=== PATIENT | male | born 1985 | race Caucasian/White ===

== ENCOUNTER 2020-12-05 10:05 | Emergency (ER) | payer BC, OTHER ==
[~2020-12-05] VITALS: Ht 175.3 cm; Wt 72.4 kg
[~2020-12-05 10:05] MED LIST: LIDOCAINE 1% INJ 20 ML 20 ML VIAL ONE
[2020-12-05 10:08] VITALS: BP 139/85
[2020-12-05] MEDS ORDERED: LIDOCAINE 1% INJ 20 ML 20 ML VIAL ONE (10:09)
[2020-12-05] MEDS ORDERED: LIDOCAINE/EPI 2% 1:100,00 (XYLOCAINE) 20 ML VIAL ONE (10:10)
[2020-12-05] MEDS ORDERED: LIDOCAINE/EPI 2% 1:100,00 (XYLOCAINE) 20 ML VIAL INJ ONE (10:15)
[2020-12-05] MEDS ORDERED: TETANUS,DIPTH,PERTUSS P/F (BOOSTRIX) 0.5 ML VIAL IM ONE (10:15)
--- NOTE | 2020-12-05 10:15 | ED Upper Extremity ---
General Chief Complaint: Laceration Stated Complaint: RT HAND LAC Source: patient Exam Limitations: no limitations History of Present Illness Date Seen by Provider: Dec 05, 2020 Time Seen by Provider: 10:08 Initial Comments Patient reports ER by private conveyance with chief complaint that he has lacerations on the back of his right hand. He is right-hand dominant. He states he was out feeding his dogs walking back to his truck when he lost his balance and fell onto outstretched hand onto some glass causing several small lacerations to the back of his hand. He says he does not have any significant pain. Did not crush his hand. He has full range of motion. Not on any medications or blood thinners. Allergies and Home Medications Allergies Coded Allergies: No Known Drug Allergies (Unverified , 12/05/20) Home Medications Amoxicillin 500 Mg Capsule, 500 MG PO TID Prescribed by: MONTANA BLUNT on 12/05/20 1033 Patient Home Medication List Home Medication List Reviewed: Yes Review of Systems Constitutional: No chills, No diaphoresis EENTM: No ear discharge, No ear pain Respiratory: No cough, No short of breath Cardiovascular: No chest pain, No palpitations Genitourinary: No discharge, No dysuria Musculoskeletal: No back pain, No joint pain Past Xubwqor-Oyhzdj-Czdifj Hx Patient Social History Alcohol Use: Occasionally Uses Alcohol Beverage of Choice: Beer Smoking Status: Never a Smoker Physical Exam Vital Signs Vital Signs - First Documented 12/05/20 10:08 Temp 36.2 Pulse 90 Resp 14 B/P (MAP) 139/85 (103) Pulse Ox 100 O2 Delivery Room Air Capillary Refill : Height, Weight, BMI Height: '" Weight: lbs. oz. kg; BMI Method: General Appearance: WD/WN, mild distress HEENT: PERRL/EOMI, pharynx normal Cardiovascular: normal peripheral pulses, regular rate, rhythm Respiratory: no respiratory distress, no accessory muscle use Wrist: Yes normal inspection, Yes non-tender, Yes no evidence of injury, Yes normal ROM Hand: normal ROM, Right, laceration (1 cm laceration over the third knuckle dorsum, 1-1/2 cm laceration over the distal second metacarpal and 3.5 cm laceration over the third metacarpal dorsal right hand.) Procedures/Interventions Wound Location: Upper Extremities Other Wound Location Dorsal right hand over the third metacarpal Wound Length (cm): 3.5 Wound's Depth, Shape: linear, sub Q Wound Explored: no foreign body removed Irrigated w/ Saline (ccs): 100 Betadine Prep?: Yes (Chlorhexidine) Anesthesia: Lidocaine w/ Epi Volume Anesthetic (ccs): 4 Wound Debrided: minimal Suture: Prolene Suture Size: 4-0 Number of Sutures: 4 Layer Closure?: 1 Sterile Dressing Applied?: Yes Wound Location: Upper Extremities Other Wound Location Dorsal right hand over the second metacarpal Wound Length (cm): 1.5 Wound's Depth, Shape: linear, sub Q Wound Explored: no foreign body removed Irrigated w/ Saline (ccs): 50 Betadine Prep?: Yes (Chlorhexidine) Anesthesia: Lidocaine w/ Epi Volume Anesthetic (ccs): 1 Wound Debrided: minimal Suture: Prolene Suture Size: 4-0 Number of Sutures: 2 Layer Closure?: 1 Sterile Dressing Applied?: Yes Wound Location: Upper Extremities Other Wound Location Right hand dorsum over the knuckle of the third digit Wound Length (cm): 1 Wound's Depth, Shape: linear, sub Q Wound Explored: no foreign body removed Irrigated w/ Saline (ccs): 50 Betadine Prep?: Yes (Chlorhexidine) Anesthesia: Lidocaine w/ Epi Volume Anesthetic (ccs): 1 Wound Debrided: minimal Suture: Prolene Suture Size: 4-0 Number of Sutures: 1 Layer Closure?: 1 Sterile Dressing Applied?: Yes Progress/Results/Core Measures Results/Orders My Orders Orders - MONTANA BLUNT Lidocaine 1% Inj 20 Ml (Xylocaine 1% Inj (12/05/20 10:05) Lidocaine 1% Inj 20 Ml (Xylocaine 1% Inj (12/05/20 10:09) Lidocaine/Epi 2% 1:100,000 (Xylocaine/Ep (12/05/20 10:10) Dipht,Pertuss(Acell),Tet Adult (Boostrix (12/05/20 10:15) Lidocaine/Epi 2% 1:100,000 (Xylocaine/Ep (12/05/20 10:15) Medications Given in ED Current Medications Medications Dose Ordered Sig/Ethan Route Start Time Stop Time Status Last Admin Dose Admin Diphtheria/ Tetanus/Acell Pertussis 0.5 ml ONCE ONCE IM 12/05/20 10:15 2/7/21 10:17 DC 12/05/20 10:38 0.5 ML Lidocaine/ Epinephrine 20 ml ONCE ONCE INJ 12/05/20 10:15 12/05/20 10:17 DC 12/05/20 10:39 20 ML Vital Signs/I&O 12/05/20 10:08 Temp 36.2 Pulse 90 Resp 14 B/P (MAP) 139/85 (103) Pulse Ox 100 O2 Delivery Room Air Progress Progress Note : Time: 10:37 Progress Note Wound is actively exsanguinating and recent so should be good for cleaning and sewing. No evidence of foreign debris found on exploration. Tendons appear to be intact. Tetanus vaccine given. We will put him on amoxicillin for antibiotic prophylaxis. Departure Impression Primary Impression: Fall Qualified Codes: W19.XXXA - Unspecified fall, initial encounter Additional Impressions: Laceration of right hand Qualified Codes: S61.411A - Laceration without foreign body of right hand, initial encounter Traumatic hematoma of right hand Qualified Codes: S60.221A - Contusion of right hand, initial encounter Disposition: 01 HOME, SELF-CARE Condition: Improved Departure-Patient Inst. Decision time for Depature: 10:31 Referrals: GEO GRULLON,LOCAL PHYSICIAN (PCP) Primary Care Physician Patient Instructions: Laceration Repair With Stitches (DC), Diphtheria and T etanus Toxoids, and Acellular Pertussis Vaccine Add. Discharge Instructions: Keep the wound clean with regular soap and water. Ice applied for 20 minutes every 2 hours as necessary for swelling and pain for the first 2 to 3 days. Keep your hand elevated above the level of your heart to reduce swelling and pain. Keep a compression dressing such as an Soham wrap to help reduce the swelling and pain. You may use Vaseline or triple antibiotic ointment directly over the stitches to keep it from sticking to the dressing and keep soiled out. Do not use iodine, chlorhexidine, alcohol, hydrogen peroxide or other astring ents as this will delay wound healing. Return to the ER for suture removal in 10 to 14 days. If you have bleeding apply direct pressure for 40 minutes and elevate the limb above the level of your heart. If this does not stop the bleeding then return to the nearest ER. supervisor [address] road the amoxicillin and take 1 tablet 3 times a day for the next week to prevent infection in your hand. Return to the doctor sooner if you are seeing increasing redness going up your hand and arm, fever or other worrisome symptoms. Do not use your hand for the next 2 to 3 days to reduce swelling and pain. Avoid alcohol for the next couple days to reduce bleeding. The swelling is a collection of blood under the skin and should resolve in the next 1 to 2 weeks. If you have any difficulty moving your fingers then you can rewrap the dressing looser. If you are still having problems with your hand then you may follow-up with the hand surgeon, Dr. GRULLON by calling for an appointment. All discharge instructions reviewed with patient and/or family. Voiced understanding. Scripts Amoxicillin (Amoxicillin) 500 Mg Capsule 500 MG PO TID for 7 Days, #21 CAP 0 Refills Prov: MONTANA BLUNT 12/05/20 Work/School Note: Work Release Form Date Seen in the Emergency Department: Dec 05, 2020 Return to Work: Dec 06, 2020 Restrictions: Need Release from Doctor Other Restrictions Listed Below: Do not use your hand until 12/08/2020. Keep sutures clean and dry. Copy Copies To 1: GEO GRULLON DO MONTANA BLUNT Dec 05, 2020 10:15
[2020-12-05] MEDS ORDERED: AMOX500C2 PO (10:33)
== END 2020-12-05 10:55 | disposition home or self-care (01) ==
LOC: ER FS 10:07
DX: S61.411A Laceration without foreign body of right hand, initial encounter (principal); Z23 Encounter for immunization; W25.XXXA Contact with sharp glass, initial encounter
CPT/HCPCS: 12001; 90715

== ENCOUNTER 2020-12-15 10:49 | Emergency (ER) | payer BC ==
[~2020-12-15] VITALS: Ht 175 cm; Wt 68.0 kg
[~2020-12-15 10:49] MED LIST changes: +AMOX500C2 PO; -LIDOCAINE 1% INJ 20 ML 20 ML VIAL ONE
[2020-12-15 11:00] VITALS: BP 119/91
--- NOTE | 2020-12-15 11:02 | ED Suture Removal/Wound Check ---
Suture/Wound Re-check Suture Removal/Wound Recheck : Suture Removal/Wound Recheck: Sutures removed by RN General Appearance: WD/WN, no apparent distress Neuro/Tendon: normal sensation, normal motor functions, normal tendon functions Skin Exam: warm/dry, ecchymosis (palm, thumb) Physical Exam Vital Signs Vital Signs - First Documented 12/15/20 11:00 Temp 36.7 Pulse 87 Resp 16 B/P (MAP) 119/91 Pulse Ox 98 Capillary Refill : General Appearance: WD/WN, no apparent distress Extremities: normal range of motion, normal capillary refill Neurologic/Psychiatric: alert, normal mood/affect, oriented x 3 Skin: warm/dry, ecchymosis (palm, thumb) Departure Impression Primary Impression: Encounter for removal of sutures Disposition: HOME, SELF-CARE Condition: Stable Departure-Patient Inst. Decision time for Depature: 11:07 Referrals: NO,LOCAL PHYSICIAN (PCP) Primary Care Physician [facility] [place] Patient Instructions: SUTURE REMOVAL - UNCOMPLICATED Add. Discharge Instructions: For bruising and swelling may alternate ice and heat packs to help that heal. Check with clinic or may see Orthopedics like Dr. Gan and his nurse practitioner Miguel Cochran for further concerns. Orthopedics could be reached by calling [phone] All discharge instructions reviewed with patient and/or family. Voiced understanding. Images Extremities-Upper 1 - Laceration (well healed laceration with mild soft tissue swelling) 2 - Laceration (well healed laceration) 3 - Laceration (well healed laceration) SANTOS SHEPARD MD Dec 15, 2020 11:02
== END 2020-12-15 11:14 | disposition home or self-care (01) ==
LOC: EDUNIT# 10:49 → ER FS 10:50
DX: Z48.02 Encounter for removal of sutures (principal)